=== PATIENT | female | born 2000 | race Caucasian/White ===

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

== ENCOUNTER 2018-08-05 17:41 | Emergency (ER) | payer BC ==
[2018-08-05] MEDS ORDERED: NS 1,000 ML IV ONE (18:33)
[2018-08-05] MEDS ORDERED: ACETAMINOPHEN 500 MG TAB PO ONE (18:33)
--- NOTE | 2018-08-05 18:34 | EDPHY ---
HPI/HX/ROS/PE/MDM Narrative: CHIEF COMPLAINT: Nausea, near-syncope. HISTORY OF PRESENT ILLNESS: This patient is a 17 year-old female complaining of nausea and dizziness who presents following a near-syncopal episode. Earlier today, she felt very fatigued in her afternoon class and then began to feel nauseous. She went to the bathroom and became dizzy, noting blurred vision and alvarado in her vision. She feels she may have briefly lost consciousness as she suddenly woke when she struck her head against the wall. Since this event, she has noted pain in her temples and behind her eyes. She has history of multiple concussions, so her mother recommended evaluation at the ED. Her current symptoms do not feel similar to this however. She endorses a recent increase in her Adderall prescription dosage. Denies recent alcohol consumption, but has had heavy alcohol consumption on weekends. States she had breakfast and lunch as usual and stayed well hydrated. She notes she has had recent easy bruising. She has otherwise felt well recently. No history of syncope with exertion. No fever, chills, chest pain, shortness of breath, palpitations, vomiting, diarrhea, urinary complaints, headache. REVIEW OF SYSTEMS: A comprehensive 10 system review of systems is otherwise negative aside from elements mentioned in the history of present illness and medical decision making. PAST MEDICAL HISTORY: Exercise-induced asthma. Five concussions. SOCIAL HISTORY: Student at [employer]. Social alcohol consumption. She does smoke a vaporizer. Denies marijuana use or illicit drug use. VITAL SIGNS: Reviewed by me GENERAL: Well-developed, well-nourished, resting comfortably in no respiratory distress. HEENT: Small abrasion to forehead just right of midline. Eyes: No icterus, no injection. Mouth: moist mucous membranes. No erythema or lesions. Neck: supple with no adenopathy. LUNGS: Clear to auscultation bilaterally, no wheezes, rhonchi or rales. CARDIAC: Regular rate and rhythm, no rubs, murmurs or gallops. ABDOMEN: Soft, nontender, nondistended, bowel sounds normal. BACK: No CVA tenderness. EXTREMITIES: Ecchymoses to bilateral lower extremities. No edema. Range of motion is normal throughout. NEURO: Alert and oriented, grossly nonfocal. SKIN: Warm and dry, no rash. PSYCHIATRIC: Normal mentation, no agitation. Portions of this note were transcribed by a emergency medical services coordinator. I personally performed a history, physical exam, medical decision making, and confirmed accuracy of information the transcribed note. ED Course: 17 y/o female presents with nausea and dizziness. She reports a near-syncopal event this afternoon. Exam is unremarkable apart from ecchymoses on her bilateral lower extremities. Plan for EKG, labs including CBC, chemistries, troponin, BHCG. IV established. Plan to administer 1L IVF and 1000mg PO Tylenol for symptom relief. 12-LEAD EKG: Please see the full report in [facility]. My interpretation: Normal sinus rhythm Labs unremarkable. BCHG negative. Troponin negative. Reassessed. Discussed laboratory results. Plan to discharge home in good condition. Her sorority sisters will be able to observe her tonight for signs of CHI. Follow up and return precautions discussed. The patient is comfortable with this plan. Discussed patient's history, PE, and ED course with mother on the phone as asked to do so by patient. Explained the patient does not meet criteria for CT scanning, Discussed need for staying well hydrated and to be with sorority sisters. Also discussed use of Adderall as prescribed. Mother is in agreement that patient is safe for discharge. MDM: Diff dx considered including but not limited to vasovagal syncope, arrhythmia, dehydration, medication abuse, withdrawl symptoms from adderall, and blood loss. - Data Points Laboratory Results: Laboratory Results 08/05/18 18:30 08/05/18 18:30 Medications Given: Discontinued Medications Acetaminophen (Tylenol) 1,000 mg PO EDNOW ONE Stop: 08/05/18 18:34 Last Admin: 08/05/18 18:42 Dose: 1,000 mg Sodium Chloride (Ns) 1,000 mls @ 0 mls/hr IV ONCE ONE; Wide Open PRN Reason: Protocol Stop: 08/05/18 18:34 Last Admin: 08/05/18 18:41 Dose: 1,000 mls Point of Care Test Results: Chemistry 08/05/18 18:50 POC Troponin I 0.01 ng/mL ng/mL (0.00-0.08) General Time Seen by Provider: 08/05/18 18:05 Initial Vital Signs: Initial Vital Signs Temperature (C) 36.5 C 08/05/18 17:50 Heart Rate 79 08/05/18 17:50 Respiratory Rate 18 08/05/18 17:50 Blood Pressure 135/77 H 08/05/18 17:50 O2 Sat (%) 96 08/05/18 17:50 O2 Delivery Mode Room Air Allergies/Adverse Reactions: No Known Allergies Allergy (Verified 08/05/18 17:48) Home Medications: Medication Instructions Recorded FLUoxetine [Prozac 10 MG (*)] 10 mg PO DAILY 07/30/17 Amphetamine Salts 20 mg Tablet 08/05/18 Departure - Departure Disposition: Home, Routine, Self-Care Clinical Impression: Vasovagal near-syncope, Closed head injury Condition: Good Instructions: Head Injury (ED), Near Syncope (ED) Additional Instructions: Follow-up with [facility] within 72 hours. Be seen sooner if you have recurrent episodes of near fainting or fainting. Your sorority sister should watch for signs of closed head injury. Stay well-hydrated. Avoid using your Adderall as a stimulant for being sleep deprived. Avoid excessive alcohol intake. Return to the Emergency Department for severe headache, vomiting, vision changes , confusion, fever or other concerns. Referrals: [facility],. [Clinic] - As per Instructions Stand Alone Forms: School Excuse Report Scribed for: Funmilayo Olsen Report Scribed by: Chaparrita Phoenix Date of Report: 08/05/18 Time of Report: 19:29
--- NOTE | 2018-08-05 18:43 | CPEKG ---
Test Reason : OPEN Blood Pressure : / mmHG Vent. Rate : 073 BPM Atrial Rate : 072 BPM P-R Int : 163 ms QRS Dur : 086 ms QT Int : 401 ms P-R-T Axes : 013 062 025 degrees QTc Int : 442 ms Sinus rhythm Confirmed by Dustin Vizcarra ([id number]) on 08/05/2018 6:43:10 PM Referred By: Confirmed By:Dustin Vizcarra
[2018-08-05 18:59] LABS: PLATELET COUNT 266 10^3/uL (150-400)
[2018-08-05 20:11] VITALS: BP 110/78
== END 2018-08-05 20:11 | disposition home or self-care (01) ==
DX: R55 Syncope and collapse (principal); S09.90XA Unspecified injury of head, initial encounter; E86.9 Volume depletion, unspecified; W01.198A Fall on same level from slipping, tripping and stumbling with subsequent striking against other object, initial encounter; Y92.9 Unspecified place or not applicable; Y93.9 Activity, unspecified; Y99.9 Unspecified external cause status
CPT/HCPCS: 84484-PO

== ENCOUNTER 2018-08-25 09:45 | Emergency (ER) | payer BC ==
[2018-08-25] MEDS ORDERED: NS 1,000 ML IV ONE (10:41)
--- NOTE | 2018-08-25 10:52 | EDPHY ---
Addendum entered and electronically signed by Tarik Young MD 08/25/18 14: 51: The patient was evaluated by Mental Health. Her M1 psychiatric hold has been vacated. The patient contracts for safety. Collateral information was obtained from the patient's mother. Case was discussed with Dr. Humza Martin who vacated her psychiatric hold. Original Note: General - History Smoking Status: Never smoked Time Seen by Provider: 08/25/18 10:44 Narrative: CHIEF COMPLAINT: Attempted to overdose on Prozac HISTORY OF PRESENT ILLNESS: Patient presents by private vehicle with complaints of attempted overdose on Prozac. She states that she has been feeling increasing depression due to history with her father. She states that she felt severely depressed this morning and "I just wanted to go to sleep and for it all to go away."She admits to wanting to when she took approximately 20 of her Prozac pills, 10 mg each. This was at 8:00 a.m. Today. She now feels very remorseful and no longer wants to . She states that she is very depressed and asking for help. She expresses remorse but does admit feeling that way this morning. She denies wanting to at this time. No previous suicide attempts admitted. No current therapy or counseling here. [employer] student really from [place]. No other associated complaints or modifying factors PSYCHIATRIC DIAGNOSES: PTSD, depression, attention deficit hyperactivity disorder PRIOR PSYCHIATRIC EVALUATIONS: None M1/DETAINER: Dr. Young at 10:50 a.m. Today REVIEW OF SYSTEMS: Ten systems reviewed and are negative unless otherwise noted in the HPI EXAMINATION General Appearance: Alert, no distress. Tearful. Head: normocephalic, atraumatic Eyes: Pupils equal and round, no conjunctival pallor or injection ENT, Mouth: Mucous membranes moist Neck: Normal inspection, supple, non-tender Respiratory: Lungs are clear to auscultation Cardiovascular: Regular rate and rhythm Gastrointestinal: Abdomen is soft and nontender Back: non-tender, no bony abnormalities Neurological: GCS 15. A&O, nonfocal, normal gait. No pronator drift. Normal [id number]. Skin: Warm and dry, no rash Extremities: Nontender, no pedal edema Psychiatric: Depressed mood and affect. Admits to attempted overdose this morning. DIFFERENTIAL DIAGNOSES: Including but not limited to suicidal ideation, suicidal gesture, depression, anxiety, PTSD, overdose MDM: 10:50 a.m. Suicidal gesture with major depression and admission of ingestion of pills earlier this morning. She expresses remorse but remains very depressed and tearful. She is cooperative at this time. She is awake and alert without somnolence or altered mentation. She is afebrile. She has no abdominal pain. Her vital signs are within normal limits. She has been placed on an M1 hold by Dr. Young. Poison control will be consulted. 11:00 a.m. Case discussed with poison control, Naz DING. She recommends HCG, acetaminophen level, Tylenol level, liver function panel and supportive care for 4 hr. . 12:00 p.m. Laboratory studies are all within normal limits. Patient has re-evaluated remains awake alert. No acute distress with vital signs stable. At this point she is cleared for evaluation and will be evaluated shortly. 1:30 p.m. Patient has been evaluated and the pulp drier is discussing with psychiatrist. No recommendation is been made at this time. 3:00 p.m. Patient has been evaluated and they recommend that she be discharged home after hold vacated as she has contract for safety. She has no caudal. He is awake alert. She has been provided outpatient resources. Patient, her mother, and the psychiatrist agree with this plan. I do feel this is reasonable for the patient as well. We discussed ED precautions for return of her symptoms. She is comfortable this plan and discharged in stable condition. SUPERVISION: Patient was independently examined, but I discussed the case with my secondary supervising physician Dr. Young ([facility]) Medical Decision Making: PHYSICIAN DOCUMENTATION: The patient was evaluated and managed by the Physician Halal Butcher. My co- signature indicates that I have reviewed this chart and I agree with the findings and plan of care as documented. I am the secondary supervising physician. (Tarik Young) - Diagnostics EKG Interpretation: EKG: Complete interpretation has been separately recorded in the [employer] archive. Summary impression: Sinus rhythm, rate 67 (Tarik Young) - Objective Vital Signs: Initial Vital Signs Temperature (C) 97.9 F 08/25/18 10:27 Heart Rate 75 08/25/18 10:27 Respiratory Rate 18 08/25/18 10:27 Blood Pressure 125/74 H 08/25/18 10:27 O2 Sat (%) 99 08/25/18 10:27 O2 Delivery Mode Room Air Allergies/Adverse Reactions: No Known Allergies Allergy (Verified 08/05/18 17:48) Home Medications: Medication Instructions Recorded FLUoxetine [Prozac 10 MG (*)] 10 mg PO DAILY 07/30/17 Adderall 10 mg Tablet 08/25/18 Laboratory Results: Laboratory Results 08/25/18 10:50 08/25/18 10:50 08/25/18 08/25/18 08/25/18 11:00 10:50 10:50 WBC RBC Hgb Hct MCV MCH MCHC RDW Plt Count MPV Neut % (Auto) Lymph % (Auto) [place] % (Auto) Eos % (Auto) Baso % (Auto) Nucleat RBC Rel Count Absolute Neuts (auto) Absolute Lymphs (auto) Absolute Monos (auto) Absolute Eos (auto) Absolute Basos (auto) Absolute Nucleated RBC Immature Gran % Immature Gran # Sodium 142 mEq/L mEq/L (135-145) Potassium 3.9 mEq/L mEq/L (3.3-5.0) Chloride 103 mEq/L mEq/L (97-110) Carbon Dioxide 28 mEq/l mEq/l (22-31) Anion Gap 11 mEq/L mEq/L (8-16) BUN 10 mg/dL mg/dL (7-23) Creatinine 0.7 mg/dL mg/dL (0.6-1.0) Estimated GFR > 60 Glucose 98 mg/dL mg/dL (70-100) Calcium 9.4 mg/dL mg/dL (8.5-10.4) Total Bilirubin 0.3 mg/dL mg/dL (0.1-1.4) Conjugated Bilirubin 0.0 mg/dL mg/dL (0.0-0.5) Unconjugated Bilirubin 0.3 mg/dL mg/dL (0.0-1.1) AST 19 IU/L IU/L (14-46) ALT 26 IU/L IU/L (9-52) Alkaline Phosphatase 63 IU/L IU/L (38-126) Total Protein 7.5 g/dL g/dL (6.3-8.2) Albumin 4.2 g/dL g/dL (3.5-5.0) Beta HCG, Qual NEGATIVE Salicylates < 1.0 mg/dL L mg/dL (2.0-20.0) Urine Opiates Screen NEGATIVE (NEGATIVE) Acetaminophen < 10 mcg/mL L mcg/mL (10-30) Urine Barbiturates NEGATIVE (NEGATIVE) Ur Phencyclidine Scrn NEGATIVE (NEGATIVE) Ur Amphetamine Screen NEGATIVE (NEGATIVE) U Benzodiazepines Scrn NEGATIVE (NEGATIVE) Urine Cocaine Screen NEGATIVE (NEGATIVE) U Marijuana (THC) Screen NON-NEGATIVE H (NEGATIVE) Ethyl Alcohol < 10 mg/dL mg/dL (0-10) 08/25/18 10:50 WBC 7.98 10^3/uL 10^3/uL (3.80-9.50) RBC 4.60 10^6/uL 10^6/uL (4.18-5.33) Hgb 14.1 g/dL g/dL (12.6-16.3) Hct 42.9 % % (38.0-47.0) MCV 93.3 fL fL (81.5-99.8) MCH 30.7 pg pg (27.9-34.1) MCHC 32.9 g/dL g/dL (32.4-36.7) RDW 13.3 % % (11.5-15.2) Plt Count 276 10^3/uL 10^3/uL (150-400) MPV 9.0 fL fL (8.7-11.7) Neut % (Auto) 59.6 % % (39.3-74.2) Lymph % (Auto) 29.9 % % (15.0-45.0) [place] % (Auto) 8.0 % % (4.5-13.0) Eos % (Auto) 1.6 % % (0.6-7.6) Baso % (Auto) 0.6 % % (0.3-1.7) Nucleat RBC Rel Count 0.0 % % (0.0-0.2) Absolute Neuts (auto) 4.75 10^3/uL 10^3/uL (1.70-6.50) Absolute Lymphs (auto) 2.39 10^3/uL 10^3/uL (1.00-3.00) Absolute Monos (auto) 0.64 10^3/uL 10^3/uL (0.30-0.80) Absolute Eos (auto) 0.13 10^3/uL 10^3/uL (0.03-0.40) Absolute Basos (auto) 0.05 10^3/uL 10^3/uL (0.02-0.10) Absolute Nucleated RBC 0.00 10^3/uL 10^3/uL (0-0.01) Immature Gran % 0.3 % % (0.0-1.1) Immature Gran # 0.02 10^3/uL 10^3/uL (0.00-0.10) Sodium Potassium Chloride Carbon Dioxide Anion Gap BUN Creatinine Estimated GFR Glucose Calcium Total Bilirubin Conjugated Bilirubin Unconjugated Bilirubin AST ALT Alkaline Phosphatase Total Protein Albumin Beta HCG, Qual Salicylates Urine Opiates Screen Acetaminophen Urine Barbiturates Ur Phencyclidine Scrn Ur Amphetamine Screen U Benzodiazepines Scrn Urine Cocaine Screen U Marijuana (THC) Screen Ethyl Alcohol Medications Given: Discontinued Medications Sodium Chloride (Ns) 1,000 mls @ 0 mls/hr IV EDNOW ONE; Wide Open PRN Reason: Protocol Stop: 08/25/18 10:42 Last Admin: 08/25/18 11:06 Dose: 1,000 mls Departure - Departure Disposition: Home, Routine, Self-Care Clinical Impression: Suicidal ideation Suicide gesture Qualifiers: Encounter type: initial encounter Qualified Code(s): X83.8XXA - Intentional self-harm by other specified means, initial encounter Condition: Good Instructions: Depression (ED) Additional Instructions: 1. Please follow-up with the mental health resources provided in the ED today. 2. [facility] does operate a 17/06 psychiatric crisis unit located at [address] [place] [address]. The telephone number for the 24 hour crisis center is [phone]. 3. Please return to the ED if you are feeling suicidal, having thoughts of harming yourself/others or should you feel unsafe or have worsening symptoms. Referrals: NONE *PRIMARY CARE P,. [Primary Care Provider] - As per Instructions [facility],. [Clinic] - As per Instructions Stand Alone Forms: School Excuse
[2018-08-25 11:03] LABS: PLATELET COUNT 276 10^3/uL (150-400)
--- NOTE | 2018-08-25 13:33 | CPEKG ---
Test Reason : OPEN Blood Pressure : / mmHG Vent. Rate : 067 BPM Atrial Rate : 067 BPM P-R Int : 138 ms QRS Dur : 082 ms QT Int : 403 ms P-R-T Axes : 031 065 056 degrees QTc Int : 426 ms Sinus rhythm Confirmed by Tarik Young ([id number]) on 08/25/2018 1:33:25 PM Referred By: Confirmed By:Tarik Young
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
--- NOTE | 2018-08-25 15:06 | ASMTTCLDSP ---
TLC Discharge Disposition Disposition Notes: Notes: Pt was given resources to [facility] and encouraged to follow up today to set up an appointment. Pt was also advised, Per Dr. Martin, to wait at least 1 week before taking her prozac and adderral. Pt [facility] also [facility] and crisis numbers. Discharge Concerns/Recommendations: Notes: In consultation with [facility] ED physician, Garfield Young MD, and on-call psychiatrist, Humza Martin MD, both concurred that pt does not appear to meet 27-65 criteria requiring psychiatric hospitalization as pt does not appear to be an imminent risk of harm to self/others/gravely disabled due to a mental illness condition. Psychiatrist vacating M1 Humza Martin MD Hold: Date and time M1 hold 08/25/2018 03:00 PM vacated (time format is hh:mm): Type of Hold: Answers: M1/72-hour Hold Hold initiated by: Answers: ED Physician Date Signed: 08/25/2018 03:06 PM Electronically Signed By:Geri Henry
[2018-08-25 15:12] VITALS: BP 118/74
== END 2018-08-25 15:15 | disposition home or self-care (01) ==
DX: R45.851 Suicidal ideations (principal); T43.202A Poisoning by unspecified antidepressants, intentional self-harm, initial encounter; E86.9 Volume depletion, unspecified; F32.9 Major depressive disorder, single episode, unspecified
CPT/HCPCS: 80305; G0480

== ENCOUNTER → 2018-10-27 | Outpatient (CLI) | payer OTHER | LOC: BMCIMAGING 12:17 | PROVIDERS: ATTEND Family Medicine | DX: M79.645 Pain in left finger(s) (principal); M25.532 Pain in left wrist ==

== ENCOUNTER 2019-01-04 13:48 | Emergency (ER) | payer OTHER ==
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
[2019-01-04 15:03] VITALS: BP 108/64
== END 2019-01-04 15:03 | disposition home or self-care (01) ==
DX: S06.0X0A Concussion without loss of consciousness, initial encounter (principal); W01.198A Fall on same level from slipping, tripping and stumbling with subsequent striking against other object, initial encounter